=== PATIENT | male | born 1960 | race Caucasian/White ===

== ENCOUNTER 2022-08-11 08:57 | Emergency (ER) | payer OTHER ==
[2022-08-11 09:45] LABS: #Basophils 0.1 thou/uL (0.0-0.2); #Eosinphils 0.3 thou/uL (0.0-0.7); #Lymphocytes 1.8 thou/uL (1.20-3.40); #Monocytes 0.9 thou/uL (0.11-0.59); #Neutrophils 5.6 thou/uL (1.40-6.50); %Basophils 0.7 % (0.0-1.0); %Eosinophils 3.1 % (0.0-10.0); %Lymphocytes 20.4 % (21.0-51.0); %Monocytes 10.2 % (0.0-10.0); %Neutrophils 65.6 % (42.0-75.0); Hemoglobin 14.5 g/dL (14.0-18.0); Mean Corpuscular HGB CONC 34.6 g/dL (32.0-36.0); Mean Corpuscular Hemoglobin 31.8 pg (27.0-31.0); Mean Corpuscular Volume 92.1 fl (78.0-98.0); Mean Platelet Volume 6.8 fL (7.4-10.4); Platelet Count 173 10x3/uL (130-400); RBC Distribution Width 10.7 % (11.5-14.5); Red Blood Cell (RBC) Count 4.55 mill/uL (4.70-6.10); White Blood Cell (WBC) Count 8.6 10x3/uL (4.8-10.8)
[2022-08-11 09:56] LABS: ALT (SGPT) 79 U/L (8-55); AST (SGOT) 72 U/L (5-34); Alkaline Phosphatase 106 U/L (40-110); Anion Gap 10 mmol/L (10-20); BUN (Urea Nitrogen) 13 mg/dL (8.4-25.7); Bilirubin, Total 0.8 mg/dL (0.2-1.2); Calc. Creatinine Clearance 0 mL/min (70-130); Calcium 9.6 mg/dL (7.8-10.44); Carbon Dioxide 26 mmol/L (23-31); Chloride 106 mmol/L (98-107); Estimated GFR 101; Globulin 3.7 g/dL (2.4-3.5); Glucose 103 mg/dL (80-115); Potassium 4.5 mmol/L (3.5-5.1); Protein, Total 7.7 g/dL (5.8-8.1); Sodium 137 mmol/L (136-145)
[2022-08-11] MEDS ORDERED: Ibuprofen 800 MG TAB ONE (10:23)
== END 2022-08-11 10:25 | disposition home or self-care (01) ==
LOC: MADERS 08:57
DX: R07.81 Pleurodynia (principal); R29.898 Other symptoms and signs involving the musculoskeletal system; E78.00 Pure hypercholesterolemia, unspecified; I10 Essential (primary) hypertension; F17.210 Nicotine dependence, cigarettes, uncomplicated
CPT/HCPCS: 80053; 85025

== ENCOUNTER 2022-10-06 17:18 | Emergency (ER) | payer OTHER ==
[2022-10-06 18:22] LABS: #Basophils 0.1 thou/uL (0.0-0.2); #Eosinphils 0.1 thou/uL (0.0-0.7); #Lymphocytes 2.2 thou/uL (1.20-3.40); #Monocytes 1.1 thou/uL (0.11-0.59); #Neutrophils 7.6 thou/uL (1.40-6.50); %Basophils 0.8 % (0.0-1.0); %Eosinophils 1.3 % (0.0-10.0); %Lymphocytes 19.6 % (21.0-51.0); %Monocytes 10.1 % (0.0-10.0); %Neutrophils 68.2 % (42.0-75.0); Hemoglobin 13.4 g/dL (14.0-18.0); Mean Corpuscular HGB CONC 33.8 g/dL (32.0-36.0); Mean Corpuscular Volume 94.7 fl (78.0-98.0); Mean Platelet Volume 8.8 fL (7.4-10.4); Platelet Count 180 10x3/uL (130-400); RBC Distribution Width 11.3 % (11.5-14.5); Red Blood Cell (RBC) Count 4.19 mill/uL (4.70-6.10); White Blood Cell (WBC) Count 11.1 10x3/uL (4.8-10.8)
[2022-10-06 18:37] LABS: ALT (SGPT) 55 U/L (8-55); AST (SGOT) 66 U/L (5-34); Albumin 3.8 g/dL (3.4-4.8); Alkaline Phosphatase 83 U/L (40-110); Anion Gap 16 mmol/L (10-20); BUN (Urea Nitrogen) 17 mg/dL (8.4-25.7); Bilirubin, Total 0.7 mg/dL (0.2-1.2); CK (CPK) 188 U/L (30-200); Calc. Creatinine Clearance 0 mL/min (70-130); Calcium 9.3 mg/dL (7.8-10.44); Carbon Dioxide 16 mmol/L (23-31); Chloride 109 mmol/L (98-107); Estimated GFR 89; Globulin 3.4 g/dL (2.4-3.5); Glucose 89 mg/dL (80-115); Potassium 3.9 mmol/L (3.5-5.1); Protein, Total 7.2 g/dL (5.8-8.1); Sodium 137 mmol/L (136-145)
== END 2022-10-06 19:11 | disposition home or self-care (01) ==
LOC: MADERS 17:18
DX: T67.5XXA Heat exhaustion, unspecified, initial encounter (principal); I10 Essential (primary) hypertension; E78.00 Pure hypercholesterolemia, unspecified; Z87.891 Personal history of nicotine dependence; X30.XXXA Exposure to excessive natural heat, initial encounter
CPT/HCPCS: 80053; 82550; 83605; 85025; 93005

== ENCOUNTER 2023-05-13 15:17 | Emergency (ER) | payer OTHER | END 2023-05-13 18:51 | disposition home or self-care (01) | LOC: MADERS 15:17 | DX: J20.9 Acute bronchitis, unspecified (principal); I10 Essential (primary) hypertension; Z87.891 Personal history of nicotine dependence | CPT/HCPCS: 71046; 87635; 87804 ==

== ENCOUNTER 2023-05-24 19:14 | Emergency (ER) | payer OTHER ==
[2023-05-24] MEDS ORDERED: Sodium Chloride 0.9% 100 ML ONE (20:03)
[2023-05-24] MEDS ORDERED: cefTRIAXone (ROCEPHIN) 1 GM VIAL ONE (20:03)
[2023-05-24] MEDS ORDERED: metroNIDAZOLE 500 MG (100 mL) BAG ONE (20:03)
[2023-05-24] MEDS ORDERED: Sodium Chloride 0.9% 2,000 ML ONE (20:04)
[2023-05-24 20:23] LABS: Hematocrit 43.5 % (42.0-52.0); Hemoglobin 13.9 g/dL (14.0-18.0); MDiff Complete? YES; Mean Corpuscular HGB CONC 31.9 g/dL (32.0-36.0); Mean Corpuscular Hemoglobin 30.3 pg (27.0-31.0); Mean Corpuscular Volume 94.9 fl (78.0-98.0); Mean Platelet Volume 7.8 fL (7.4-10.4); Platelet Count 276 10x3/uL (130-400); RBC Distribution Width 11.5 % (11.5-14.5); Red Blood Cell (RBC) Count 4.59 mill/uL (4.70-6.10); White Blood Cell (WBC) Count 27.7 10x3/uL (4.8-10.8)
[2023-05-24 20:24] LABS: Band 1 % (5-11); Lymphocytes 7 % (21-51); Monocytes 2 % (0-10); Neutrophil 90 % (42-75); Platelet Adequacy Comment Appears Adequate
[2023-05-24 20:27] LABS: ALT (SGPT) 29 U/L (8-55); AST (SGOT) 46 U/L (5-34); Acetaminophen Less than 10 mcg/mL (10.0-30.0); Albumin 3.8 g/dL (3.4-4.8); Alcohol Less than 10.0 mg/dL (Less than 10); Alkaline Phosphatase 86 U/L (40-110); Anion Gap 19 mmol/L (10-20); BUN (Urea Nitrogen) 18 mg/dL (8.4-25.7); Bilirubin, Total 1.5 mg/dL (0.2-1.2); Calc. Creatinine Clearance 0 mL/min (70-130); Calcium 9.1 mg/dL (7.8-10.44); Carbon Dioxide 20 mmol/L (23-31); Chloride 101 mmol/L (98-107); Estimated GFR 91; Globulin 3.8 g/dL (2.4-3.5); Glucose 122 mg/dL (80-115); Lipase 14 U/L (8-78); Potassium 4.5 mmol/L (3.5-5.1); Protein, Total 7.6 g/dL (5.8-8.1); Salicylate Less than 8.0 mg/dL (15.0-30.0); Sodium 135 mmol/L (136-145); Troponin I 0.032 ng/mL (< 0.028)
[2023-05-24 21:31] LABS: Bilirubin Small (Negative); Blood, Urine Negative (Negative); Clarity Clear (Clear); Glucose, Urine (Dipstick) Negative (Negative); Ketone, Urine 15 mg/dL (Negative); Leukocyte Negative (Negative); Nitrite Negative (Negative); Protein, Urine (Dipstick) 30 mg/dL (Neg-Trace); Urobilinogen > or = 8.0 mg/dL (Less than 2)
[2023-05-24 21:33] LABS: CAUTI Indications for Culture Alt mental st,lethar; RBC/HPF None Seen HPF (0-3); Squamous Epithelial 0-3 HPF (0-3); WBC/HPF 0-3 HPF (0-3)
[2023-05-24 21:35] LABS: Urine Culture Reflex No No
[2023-05-24 21:39] LABS: Amphetamine Not Detected (NotDetected); Barbiturates Screen Not Detected (NotDetected); Benzodiazepine Screen Not Detected (NotDetected); Cocaine Metabolite Screen Not Detected (NotDetected); Methadone Not Detected (NotDetected); Methamphetamine Not Detected (NotDetected); Opiate Screen Not Detected (NotDetected); Oxycodone Screen Not Detected (NotDetected); Phencyclidine (PCP) Not Detected (NotDetected); THC/Cannabinoid Screen Not Detected (NotDetected); Tricyclic Screen Not Detected (NotDetected)
== END 2023-05-24 23:31 | disposition short-term general hospital (02) ==
LOC: MADERS 19:14
DX: A41.9 Sepsis, unspecified organism (principal); R41.82 Altered mental status, unspecified; J18.9 Pneumonia, unspecified organism; R79.89 Other specified abnormal findings of blood chemistry; E78.00 Pure hypercholesterolemia, unspecified; I10 Essential (primary) hypertension; Z87.891 Personal history of nicotine dependence
CPT/HCPCS: 70450; 71045; 71275; 74177; 80053; 80306; 80307; 81001; 82140; 83605; 83690; 84484; 85025; 87040; 93005; 96361; 96365; 96375; J0696; J3490; J7050

== ENCOUNTER 2023-05-31 07:57 | Emergency (ER) | payer OTHER ==
[2023-05-31] MEDS ORDERED: predniSONE 20 MG TAB ONE (08:35)
[2023-05-31] MEDS ORDERED: Ipratropium/Albuterol 3 ML NEB ONE (08:35)
[2023-05-31] MEDS ORDERED: predniSONE 10 MG TAB ONE (08:35)
== END 2023-05-31 09:13 | disposition home or self-care (01) ==
LOC: MADERS 07:57
DX: J11.1 Influenza due to unidentified influenza virus with other respiratory manifestations (principal); Z87.891 Personal history of nicotine dependence; I10 Essential (primary) hypertension; E78.00 Pure hypercholesterolemia, unspecified; Z79.899 Other long term (current) drug therapy
CPT/HCPCS: 36416; 71045; 87804; J7512; J7620

== ENCOUNTER 2024-06-23 19:00 | Emergency (ER) | payer OTHER ==
[2024-06-23] MEDS ORDERED: Benzonatate 100 MG CAP ONE (19:40)
[2024-06-23] MEDS ORDERED: Azithromycin 250 MG TAB ONE (19:40)
[2024-06-23] MEDS ORDERED: predniSONE 20 MG TAB ONE (19:40)
[2024-06-23] MEDS ORDERED: Albuterol 200 PUFF (6.7GM INHALER) ONE (19:40)
== END 2024-06-23 20:22 | disposition home or self-care (01) ==
LOC: MADERS 19:00
DX: J44.1 Chronic obstructive pulmonary disease with (acute) exacerbation (principal); I10 Essential (primary) hypertension; E78.5 Hyperlipidemia, unspecified; I25.2 Old myocardial infarction; Z87.891 Personal history of nicotine dependence
CPT/HCPCS: 71046; 87428; J7512

== ENCOUNTER 2025-01-24 13:17 | Emergency (ER) | payer MEDICAID, OTHER | END 2025-01-24 15:00 | disposition home or self-care (01) | LOC: MADERS 13:17 | DX: L72.0 Epidermal cyst (principal); I10 Essential (primary) hypertension; Z87.891 Personal history of nicotine dependence | CPT/HCPCS: 99283 ==

== ENCOUNTER 2025-02-02 17:24 | Emergency (ER) | payer MEDICAID ==
[2025-02-02 18:01] LABS: #Basophils 0.1 thou/uL (0.0-0.2); #Eosinophils 0.4 thou/uL (0.0-0.7); #Lymphocytes 3.1 thou/uL (1.20-3.40); #Monocytes 0.9 thou/uL (0.11-0.59); #Neutrophils 4.4 thou/uL (1.40-6.50); %Basophils 1.1 % (0.0-1.0); %Eosinophils 4.2 % (0.0-10.0); %Lymphocytes 35.4 % (21.0-51.0); %Monocytes 9.8 % (0.0-10.0); %Neutrophils 49.6 % (42.0-75.0); Hematocrit 40.1 % (42.0-52.0); Hemoglobin 13.1 g/dL (14.0-18.0); Mean Corpuscular Hemoglobin 30.2 pg (27.0-31.0); Mean Corpuscular Volume 92.3 fl (78.0-98.0); Platelet Count 205 10x3/uL (130-400); Red Blood Cell (RBC) Count 4.34 mill/uL (4.70-6.10); White Blood Cell (WBC) Count 8.8 10x3/uL (4.8-10.8)
[2025-02-02 18:12] LABS: Glucose, Urine (Dipstick) Negative (Negative); Leukocyte Negative (Negative); Protein, Urine (Dipstick) Negative (Neg-Trace); Specific Gravity, Urine 1.020 (1.005-1.030)
[2025-02-02 18:19] LABS: ALT (SGPT) 50 U/L (Less than 45); AST (SGOT) 54 U/L (11-34); Albumin 3.4 g/dL (3.1-4.5); Alkaline Phosphatase 101 U/L (40-110); Anion Gap 16 mmol/L (10-20); BUN (Urea Nitrogen) 12 mg/dL (8.4-25.7); Bilirubin, Total 0.4 mg/dL (0.3-1.2); CK (CPK) 77 U/L (30-200); Calc. Creatinine Clearance 0 mL/min (70-130); Calcium 9.0 mg/dL (7.8-10.44); Carbon Dioxide 23 mmol/L (23-31); Chloride 108 mmol/L (98-107); Globulin 2.9 g/dL (2.4-3.5); Glucose 94 mg/dL (80-115); Magnesium 1.8 mg/dL (1.6-2.6); Potassium 4.9 mmol/L (3.5-5.1); Sodium 142 mmol/L (136-145); Troponin I Less than 0.010 ng/mL (< 0.028)
[2025-02-02 18:21] LABS: CAUTI Indications for Culture Alt mental st,lethar; RBC/HPF None Seen HPF (0-3); WBC/HPF 0-3 HPF (0-3)
[2025-02-02 18:22] LABS: Bacteria/HPF Rare-Few HPF (None Seen); Mucous/LPF Few LPF (<2+); Urine Culture Reflex No No
== END 2025-02-02 20:25 | disposition home or self-care (01) ==
LOC: MADERS 17:24
DX: T67.5XXA Heat exhaustion, unspecified, initial encounter (principal); R55 Syncope and collapse; J01.90 Acute sinusitis, unspecified; J20.9 Acute bronchitis, unspecified; E86.0 Dehydration; I10 Essential (primary) hypertension; J44.9 Chronic obstructive pulmonary disease, unspecified; I25.2 Old myocardial infarction; Z87.891 Personal history of nicotine dependence; Z79.899 Other long term (current) drug therapy
CPT/HCPCS: 36415; 70450; 71045; 80053; 81001; 82550; 83735; 83880; 84484; 85025; 85379; 93005; 96365; 96375; J2543; J2919; J7030; J7620